=== PATIENT | male | born 1945 | race Caucasian/White ===

== ENCOUNTER 2024-11-08 14:50 | Outpatient (AMB) | payer MEDICARE, SELFPAY ==
--- NOTE | 2024-11-08 14:57 | MHC.PC.OV ---
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 Intake Note: patient here for new patient visit Human Resources Consultant Required: No Allergies loratadine (From Claritin) Allergy (Intermediate, Verified 11/08/24 15:02) Anaphylaxis Medication List - Last Reconciled 11/08/24 by Demarcus Urbina MD blood sugar diagnostic (FreeStyle Lite Strips) As directed carvedilol 6.25 mg PO BID insulin glargine (Lantus Solostar U-100 Insulin) 32 units subcut BEDTIME levothyroxine 75 mcg PO DAILY pen needle, diabetic As directed rosuvastatin (Crestor) 40 mg PO DAILY Tobacco use date assessed: 11/08/24 Fall risk assessment: No Falls in past year Last assessed Fall Risk: 11/08/24 Dental Screening Dental Screen Date: 11/08/24 Did you have a dental visit in the last 12 months?: No Did you have a dental problem in the last 6 months where you did not have access to dental care?: No Was dental information given to patient?: Yes 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 BS 183 this AM & A1c 7.7%. Had Lantus increased to 35U QAM in Dec 2023. PMHx: CAD Cardiology in [place], Diabetes, hypertension, hyperlipidemia, hypothyroid, CABG x 3 SurgHx: CABG, GB, Cataract. SocHx: Quit cigs 40 yrs ago. EtOH None. No drugs PFSH Medical History (Updated 11/08/24 @ 16:20 by Demarcus Urbina MD) Bilateral cataracts Diabetes Surgical History (Updated 11/08/24 @ 16:20 by Demarcus Urbina MD) History of cholecystectomy Social History (Updated 11/08/24 @ 15:09 by Ana Cristina Beasley MA) Housing: House Patient Tobacco Use Status: Never used Tobacco e-Cigarette/Vaping Use: Never Used Second Hand Smoke Exposure: No service: No Current occupational status: retired Cognitive needs: No Hearing needs: No Vision needs: Yes Questionnaire PHQ-9 Over the last 2 weeks, how often have you been bothered by any of the following problems? 1. Little interest or pleasure in doing things: not at all 2. Feeling down, depressed, or hopeless: not at all 3. Trouble falling or staying asleep, or sleeping too much: not at all 4. Feeling tired or having little energy: not at all 5. Poor appetite or overeating: not at all 6. Feeling bad about yourself - or that you are a failure or have let yourself or your family down: not at all 7. Trouble concentrating on things, such as reading the newspaper or watching television: not at all 8. Moving or speaking so slowly that other people could have noticed. Or the opposite - being so fidgety or restless that you have been moving around a lot more than usual: not at all 9. Thoughts that you would be better off or of hurting yourself in some way: not at all Total score: 0 Depression Screening Interpretation: Negative Depression Screening Done: Yes 25860 - PHQ-9 Billing: Yes Source: Developed by Drs. rOtiz Gutiérrez, Eloina Johnson, Ken Uribe and colleagues, with an educational jc from [employer]. Thrive Questionnaire Date Thrive assessed: 11/08/24 I am a: Patient What is your living situation today?: I have a steady place to live Within the past 12 months, did the food you bought not last and you didn't have the money to get more?: Never true Within the past 12 months, did you worry whether your food would run out before you got money to buy more?: Never true Do you have trouble paying for medicines?: No Do you have trouble getting transportation to medical appointments?: No Do you have trouble paying your heating and electricity bill?: No Do you have trouble taking care of your child, family member or friend?: No Do you have trouble with day-to-day activities such as bathing, preparing meals, shopping, managing finances, etc.?: No Are you currently unemployed and looking for a job?: No Are you interested in more education?: No Please select the resources that you would like help with: None Currently or been in a relationship where the following occur: No concerns reported THRIVE Score: 0 AUDIT C Alcohol Use Questionnaire (AUDIT-C) 1. How often do you have a drink containing alcohol?: Never 3. How often do you have six or more drinks on one occasion?: Never Total Score: 0 Score Reviewed/Action Taken: Yes HUMBERTO-7 AMB Questionnaire HUMBERTO-7 Date HUMBERTO - 7 assessed: 11/08/24 Feeling nervous, anxious, or on edge: 0 = Not at all Not being able to stop or control worryin = Not at all Worrying too much about different things: 0 = Not at all Trouble relaxin = Not at all Being so restless that it is hard to sit still: 0 = Not at all Becoming easily annoyed or irritable: 0 = Not at all Feeling afraid as if something awful might happen: 0 = Not at all Total HUMBERTO-7 score (0-4 normal; 5-9 mild; 10-14 moderate; 15-21 severe): 0 Source: Developed by Drs. Ortiz Gutiérrez, Eloina Johnson, Ken Uribe and colleagues, with an educational jc from [employer]. HUMBERTO-7 Assessment Billing HUMBERTO-7 Assessment Tool: HUMBERTO-7 Assessment 26596 Review of Systems Const Denies chills, Denies fatigue, Denies fever(s), Denies headache(s) and Denies weakness ENT Denies dizziness and Denies headache(s) Card Denies chest pain, Denies lightheadedness, Denies dyspnea and Denies other (Palpitations) Resp Denies cough, Denies dyspnea, Denies wheezing and Denies other ( shortness of breath) Musc Denies numbness and Denies tingling Neuro Denies dizziness, Denies headache(s), Denies numbness, Denies tingling, Denies paresthesias and Denies weakness Psych Denies anxiety and Denies depression Endo Denies fatigue Aller/Immun Denies wheezing Physical exam (Primary Care) Vital Signs: Last Vital Signs Temp 97.5 F 11/08/24 15:13 Pulse 70 11/08/24 15:13 Resp 16 11/08/24 15:13 BP 118/72 11/08/24 15:13 Pulse Ox 95 11/08/24 15:13 Oxygen Delivery Method Room Air 11/08/24 15:13 BMI result Body Mass Index 31.3 Tobacco/Smoking Status: Tobacco use Status Tobacco use date assessed 11/08/24 11/08/24 15:11 Patient Tobacco Use Status Never used Tobacco 11/08/24 15:11 e-Cigarette/Vaping Use Never Used 11/08/24 15:11 PHQ-9: PHQ-9 Score PHQ-9: Total score 0 11/08/24 15:11 Depression Screening Interpretation: Negative Thrive Assessment: Date of Thrive Assessment Date Thrive assessed 11/08/24 11/08/24 15:18 Currently or been in a relationship where the following occur: No concerns reported Const General: no acute distress and well developed Nutritional Appearance: well nourished Orientation/consciousness: patient oriented x3 HENMT Head: Yes normocephalic and Yes atraumatic Eyes General: appearance normal, both eyes and all related structures Pupils: Equal, round and reactive pupils present EOM: EOMs intact bilaterally Resp Effort & Inspection: normal respiratory effort Auscultation: clear to auscultation bilaterally Cardio Rate: regular rate Rhythm: regular rhythm Heart sounds: S1 normal heart sound present, S2 normal heart sound present, no gallops, no murmurs and no rubs Neuro General: patient oriented x3 and gait normal Cranial nerves: Yes Equal, round and reactive pupils present Psych Affect: normal affect Coding Level of Care Code New Pt Level 4 (37397) Diagnoses Coronary artery disease I25.10 S/P CABG x 3 Z95.1 Type 2 diabetes mellitus with hyperosmolarity, uncontrolled E11.00 Hypothyroidism E03.9 Hypertension I10 Additional Codes HUMBERTO-7 Assessment Billing - HMUBERTO-7 Assessment Tool: HUMBERTO-7 Assessment 68389 ([id number]) PHQ-9 - 00939 - PHQ-9 Billing: Yes ([id number]) Assessment & Plan Assessment & Plan (1) Coronary artery disease: Code(s): I25.10 - Atherosclerotic heart disease of [place] coronary artery without angina pectoris Category: Medical Plan: 79-year-old male with history of coronary artery disease and CABG x3 Blood pressure is well controlled. He is on rosuvastatin Needs better blood sugar control see below Followed by cardiology in [place]-will request notes (2) S/P CABG x 3: Code(s): Z95.1 - Presence of aortocoronary bypass graft Category: Surgical Plan: Stable (3) Type 2 diabetes mellitus with hyperosmolarity, uncontrolled: Code(s): E11.00 - Type 2 diabetes mellitus with hyperosmolarity without nonketotic hyperglycemic-hyperosmolar coma ([facility]) Category: Medical Plan: A1c 7.7% and blood sugar 183 this morning. Increase Lantus from 35 units daily to 40 units daily Continue to check blood sugars Encouraged regular meals - avoid sugars and starches (4) Hypothyroidism: Code(s): E03.9 - Hypothyroidism, unspecified Category: Medical Plan: Check labs Continue levothyroxine (5) Hypertension: Code(s): I10 - Essential (primary) hypertension Category: Medical Plan: Blood pressure is well controlled. Goal is less than 130/80 Continue current medication Orders: Orders Comprehensive [place]. Panel Fast Today Z00.00 - Encounter for general adult medical examination without abnormal findings Complete Blood Count Auto Diff Today Z00.00 - Encounter for general adult medical examination without abnormal findings Prostate Specific Antigen Scr Today Z12.5 - Encounter for screening for malignant neoplasm of prostate Free T4 (Free Thyroxine) Today E03.9 - Hypothyroidism, unspecified Thyroid Stimulating Hormone Today E03.9 - Hypothyroidism, unspecified Microalbumin, Random (w Creat) Today I10 - Essential (primary) hypertension Lipid Panel Today Z00.00 - Encounter for general adult medical examination without abnormal findings UA CC w/rflx Micro + Cult Today Z00.00 - Encounter for general adult medical examination without abnormal findings Triiodothyronine T3 Total Today E03.9 - Hypothyroidism, unspecified Medications: New levothyroxine 75 mcg PO DAILY 90 tabs 3RF 90 days carvedilol 6.25 mg PO BID 180 tabs 3RF 90 days insulin glargine (Lantus Solostar U-100 Insulin) 40 units (0.4 mL) subcut BEDTIME 36 mL 3RF 90 days E11.00 - Type 2 diabetes mellitus with hyperosmolarity without nonketotic hyperglycemic-hyperosmolar coma ([facility]) rosuvastatin (Crestor) 40 mg PO DAILY 90 tabs 3RF 90 days
[2024-11-08 15:13] VITALS: BP 118/72; PULSE 70; RESP 16; TEMP 36.4; O2SAT 95; BMI 31.3
--- OUTSIDE RECORDS SUMMARY | 2024-11-08 16:14 | XMS_ITS ---
Author Name [facility] Organization Unknown Care Team Organization Name Specialty Phone Email Start Date End Da te [facility] Bhakti Engel MD Primary Care 01/20/2022 11/01/2023
== END 2024-11-08 16:19 | disposition home or self-care (01) ==
LOC: HO.HMCFM 14:50
PROVIDERS: Visit Provider Family Medicine
DX: I25.10 Atherosclerotic heart disease of native coronary artery without angina pectoris (principal); Z95.1 Presence of aortocoronary bypass graft; E11.00 Type 2 diabetes mellitus with hyperosmolarity without nonketotic hyperglycemic-hyperosmolar coma (NKHHC); E03.9 Hypothyroidism, unspecified; I10 Essential (primary) hypertension

== ENCOUNTER → 2024-11-08 14:50 | Outpatient (BNVA) | payer MEDICARE, SELFPAY | PROVIDERS: Visit Provider Family Medicine | DX: I25.10 Atherosclerotic heart disease of native coronary artery without angina pectoris (principal); E11.00 Type 2 diabetes mellitus with hyperosmolarity without nonketotic hyperglycemic-hyperosmolar coma (NKHHC); E03.9 Hypothyroidism, unspecified; I10 Essential (primary) hypertension; Z95.1 Presence of aortocoronary bypass graft | CPT/HCPCS: 96127; 99202 ==

== ENCOUNTER 2024-11-15 08:13 | Outpatient (REF) | payer MEDICARE, SELFPAY ==
[2024-11-15 11:25] LABS: MANUAL DIFF FLAG NO
[2024-11-15 11:38] LABS: Appearance Urine Turbid; Glucose Urine UA Negative (Negative); PH 8.5 (5.0-9.0); Specific Gravity - Urine 1.020 (1.005-1.025); UMIC TRIGGER UACC YES
[2024-11-15 11:39] LABS: Hematocrit 49.2 % (42.0-52.0); Hemoglobin 16.2 g/dl (14.0-18.0); Imm Gran Abs Auto 0.02 X10*3/uL (0.00-0.03); Imm Gran Pct Auto 0.3 % (0.0-0.4); Lymphocytes Absolute Auto 1.2 X10*3/uL (1.2-4.9); Mean Corpuscular HGB Conc 32.9 g/dl (31.0-36.0); Mean Corpuscular Hemoglobin 30.4 pg (27.0-33.0); Mean Corpuscular Volume 92.3 fL (80.0-98.0); NRBC Abs Auto 0.000 X10*3/uL (0.0-0.012); NRBC Pct Auto 0.0 /100WBC (0.0-0.2); Platelet Count 168 X10*3/uL (160-400); Red Blood Count 5.33 X10*6/uL (4.60-5.80); White Blood Count 6.3 X10*3/uL (4.8-10.8)
[2024-11-15 11:58] LABS: Other Crystals Urine Present; UACC Culture Trigger YES
[2024-11-15 12:10] LABS: Alanine Aminotransferase 26 U/L (0-40); Albumin Level 4.2 g/dL (3.5-5.0); Alkaline Phosphatase 67 U/L (39-117); Anion Gap 12 (12-20); Aspartate Amino Transferase 29 U/L (5-37); Blood Urea Nitrogen 18 mg/dL (9-16); Calcium 9.2 mg/dL (8.4-10.2); Carbon Dioxide 27 mmol/L (22-29); Chloride 105 mmol/L (96-108); Cholesterol 117 mg/dL (<200); Estimated Glomerular Filt Rate > 60; HDL Cholesterol 47 mg/dL (>40); Potassium 3.9 mmol/L (3.3-5.1); Sodium 140 mmol/L (135-145); Total Protein 6.9 g/dL (6.5-8.0); Triglycerides 62 mg/dL (<150)
[2024-11-15 12:27] LABS: Microalbum/Creatinine Ratio Ur 105.4 ug/mg cr (<30)
[2024-11-15 12:28] LABS: Free T4 (Free Thyroxine) 1.03 ng/dL (0.71-1.85); Thyroid Stimulating Hormone 2.06 uIU/mL (0.32-4.0)
== END 2024-11-15 08:14 | disposition home or self-care (01) ==
LOC: HO.WFDLDS 08:13
PROVIDERS: Visit Provider Family Medicine
DX: Z00.00 Encounter for general adult medical examination without abnormal findings (principal); Z12.5 Encounter for screening for malignant neoplasm of prostate; E03.9 Hypothyroidism, unspecified; I10 Essential (primary) hypertension; Z11.2 Encounter for screening for other bacterial diseases
CPT/HCPCS: 36415; 80053; 80061; 81001; 82043; 82570; 84153; 84439; 84443; 84480; 85025; 87086

== ENCOUNTER → 2024-11-22 15:56 | Outpatient (BNV) | payer MEDICARE, SELFPAY | PROVIDERS: Visit Provider Family Medicine | DX: E11.00 Type 2 diabetes mellitus with hyperosmolarity without nonketotic hyperglycemic-hyperosmolar coma (NKHHC) (principal) | CPT/HCPCS: 83036 ==

== ENCOUNTER 2024-12-05 07:51 | Outpatient (REF) | payer MEDICARE, SELFPAY ==
[2024-12-05 11:38] LABS: Appearance Urine Turbid; Glucose Urine UA 100 mg/dL (Negative); PH 8.0 (5.0-9.0); Specific Gravity - Urine 1.020 (1.005-1.025); UMIC TRIGGER UACC YES
[2024-12-05 11:59] LABS: UACC Culture Trigger YES
== END 2024-12-05 07:52 | disposition home or self-care (01) ==
LOC: HO.WFDLDS 07:51
PROVIDERS: Visit Provider Family Medicine
DX: Z00.00 Encounter for general adult medical examination without abnormal findings (principal)
CPT/HCPCS: 81001; 87086; 87088; 87186

== ENCOUNTER 2025-01-10 14:19 | Outpatient (AMB) | payer MEDICARE, SELFPAY ==
--- NOTE | 2025-01-10 14:23 | A.OFFPC_ITS ---
Vital Signs 01/10/25 14:27 Height 6 ft 2 in Weight 247 lb BMI 31.7 BP 122/86 Blood Pressure Location Rt brachial Position Sitting Respiration 16 Pulse 70 Pulse Source Pulse Oximeter Temp 97.9 F Temp Source Temporal Artery Scan Pulse Oximetry (%) 94 Oxygen Delivery Method Room Air Intake Visit Reasons: F/u extended exam w follow-up diabetes & labs Intake Note: Ortiz presents in the office today for an extended exam with follow up to diabetes and labs. Patient needs refill of Crestor. Patient stated that the Macrobid gave him a yeast infection. Allergies loratadine (From Claritin) Allergy (Intermediate, Verified 01/10/25 14:25) Anaphylaxis Medication List - Last Reconciled 01/10/25 by Demarcus Urbina MD blood sugar diagnostic (FreeStyle Lite Strips) As directed carvedilol 6.25 mg PO BID 90 days insulin glargine (Lantus Solostar U-100 Insulin) 40 units (0.4 mL) subcut BEDTIME 90 days levothyroxine 75 mcg PO DAILY 90 days pen needle, diabetic As directed rosuvastatin (Crestor) 40 mg PO DAILY 90 days Tobacco use date assessed: 01/10/25 Fall risk assessment: No Falls in past year Last assessed Fall Risk: 01/10/25 Dental Screening Dental Screen Date: 01/10/25 Did you have a dental visit in the last 12 months?: No Did you have a dental problem in the last 6 months where you did not have access to dental care?: No Was dental information given to patient?: Patient declined HPI F/u extended exam w follow-up diabetes & labs HPI Details 79 y/o male presents for an extended ex am with f/u labs, health maint. Labs drawn 11/15/24. Reviewed labs with pt. A1c 7.7% 11/22/24. Had increased Lantus from 35 units to 40 units. Pt notes blood sugars at home have been in the 80s. Triglycerides 62. TC 117. LDL 58. HDL 47. He is on rosuvastatin 40mg. BP today 122/86, 70p. He is on carvedilol 6.25mg b.i.d. Has complaints of some dry skin. Does drink half a gallon of water a day. Pt notes he has never had a colonoscopy. Has not had a cologuard test. Poor dentition. Pt notes he does not go to dentist. HPI Comments History of Present Illness Details Documentation assistance for Demarcus Urbina MD, was provided by Evangelist Stark,? Language And Literature Division Chair on 01/10/2025 at 3:14 PM ARNULFO. I, Dr. Urbina, have read, observed, and verified documentation. [facility] Medical History (Updated 01/10/25 @ 15:22 by Evangelist Stark) Bilateral cataracts Diabetes Surgical History (Updated 11/08/24 @ 16:20 by Demarcus Urbina MD) History of cholecystectomy Social History (Updated 01/10/25 @ 14:27 by Shraddha Rodríguez [facility]) Housing: House Alcohol intake: never Patient Tobacco Use Status: Never used Tobacco e-Cigarette/Vaping Use: Never Used Second Hand Smoke Exposure: No service: No Current occupational status: retired Cognitive needs: No Hearing needs: No Vision needs: Yes Questionnaire Thrive Questionnaire Date Thrive assessed: 11/08/24 HUMBERTO-7 AMB Questionnaire HUMBERTO-7 Date HUMBERTO - 7 assessed: 11/08/24 Source: Developed by Drs. Ortiz Gutiérrez, Eloina Johnson, Ken Uribe and colleagues, with an educational jc from [employer]. Review of Systems Const Denies chills, Denies fatigue, Denies fever(s), Denies headache(s) and Denies weakness Eyes Denies change in vision ENT Denies dizziness, Denies headache(s), Denies hearing loss, Denies nasal congestion, Denies sinus pain, Denies sinus pressure and Denies sore throat Card Denies chest pain, Denies lightheadedness, Denies dyspnea and Denies other (palpitations) Resp Denies cough, Denies dyspnea and Denies wheezing GI Denies abdominal pain, Denies melena, Denies hematochezia, Denies change in bowel habits, Denies dyspepsia and Denies nausea Denies hematuria and Denies dysuria Musc Denies abnormal gait, Denies myalgias, Denies arthralgias, Denies numbness and Denies tingling Skin/Breast Denies rash, Denies unusual bruising and Denies wounds Neuro Denies abnormal gait, Denies dizziness, Denies headache(s), Denies memory loss, Denies numbness, Denies Sensory deficit (Neuro), Denies tingling and Denies weakness Psych Denies anxiety, Denies depression and Denies memory loss Endo Denies cold intolerance, Denies fatigue, Denies heat intolerance, Denies polydipsia and Denies polyuria Ayaan/Lymph Denies easy bleeding and Denies easy bruising Aller/Immun Denies wheezing Physical exam (Primary Care) Vital Signs: Last Vital Signs Temp 97.9 F 01/10/25 14:27 Pulse 70 01/10/25 14:27 Resp 16 01/10/25 14:27 BP 122/86 01/10/25 14:27 Pulse Ox 94 01/10/25 14:27 Oxygen Delivery Method Room Air 01/10/25 14:27 BMI result Body Mass Index 31.7 Tobacco/Smoking Status: Tobacco use Status Tobacco use date assessed 01/10/25 01/10/25 14:30 Patient Tobacco Use Status Never used Tobacco 01/10/25 14:27 e-Cigarette/Vaping Use Never Used 01/10/25 14:27 Thrive Assessment: Date of Thrive Assessment Date Thrive assessed 11/08/24 01/10/25 14:25 Const General: no acute distress, well developed, alert and awake Nutritional Appearance: well nourished Orientation/consciousness: patient oriented x3 HENMT Head: Yes normocephalic and Yes atraumatic Ears: hearing grossly normal bilaterally and TM's normal bilaterally General nose exam: Normal external nose present and Normal nares present Mouth: Normal oral and palatal mucosa present and moist mucous membranes Teeth and gingiva: dentition normal Throat: Yes posterior oropharynx normal Eyes General: appearance normal, both eyes and all related structures Pupils: Equal, round and reactive pupils present and Pupil accommodation reflex normal EOM: EOMs intact bilaterally Neck Neck: Yes normal visual inspection, Yes no lymphadenopathy and Yes trachea midline Thyroid: Thyroid normal Carotids: no bruits Lymphatic: no lymphadenopathy noted Chest Chest palpation & inspection: normal inspection of the chest Resp Effort & Inspection: normal respiratory effort Auscultation: clear to auscultation bilaterally Cardio Rate: regular rate Rhythm: regular rhythm Heart sounds: S1 normal heart sound present, S2 normal heart sound present, no gallops, no murmurs and no rubs Bruits: no abdominal aortic bruits and no carotid bruits GI Palpation (GI): No Abdominal aortic bruit present, Soft to palpation, nontender, No hepatosplenomegaly present and No Rebound tenderness present Auscultation: normal bowel sounds General: Yes no CVA tenderness Back/Spine/Pelvis Back: no CVA tenderness Cervical Spine: cervical ROM normal and No Cervical spine tenderness Thoracic/Lumbar Spine: thoraco-lumbar ROM normal, No pain with thoraco-lumbar ROM, No thoracic spinal tenderness and No lumbar spinal tenderness Skin Lesions: no lesions Rashes: no rashes Trauma: no lacerations or abrasions Wounds: no wounds Nails: normal Neuro General: patient oriented x3 Cranial nerves: Yes Equal, round and reactive pupils present Cognition (Neuro): normal cognition Gait exam (Neuro): Normal gait present Motor exam (neuro): 5/5 motor strength present throughout Sensory Exam: No Sensory deficit (Neuro) Deep tendon reflexes (DTR's): Right patellar reflex intensity grade: 2+ and Left patellar reflex intensity grade: 2+ Extrem General: Yes normal to inspection and No edema Psych Appearance: grossly normal Affect: normal affect Attitude: cooperative Thought process: Normal thought process present Coding Level of Care Code Est Pt Level 4 (69145) Diagnoses Hypertension I10 Coronary artery disease I25.10 Hypothyroidism E03.9 Poor dentition K08.9 Diabetes E11.9 Bacteria in urine R82.71 Screening for colon cancer Z12.11 Screening for prostate cancer Z12.5 Adult general medical exam Z00.00 Assessment & Plan Assessment & Plan (1) Hypertension: Code(s): I10 - Essential (primary) hypertension Category: Medical Plan: Blood pressure is fairly well controlled. Goal is less than 130/80. Continue current medication (2) Coronary artery disease: Code(s): I25.10 - Atherosclerotic heart disease of [place] coronary artery without angina pectoris Category: Medical Plan: Stable Followed by Cardiology. Continue carvedilol and Crestor Maintain good blood pressure lipids and blood sugar. (3) Hypothyroidism: Code(s): E03.9 - Hypothyroidism, unspecified Category: Medical Plan: Thyroid hormone levels within normal range (4) Poor dentition: Code(s): K08.9 - Disorder of teeth and supporting structures, unspecified Category: Medical Plan: Recommended he see a dentist but he declines (5) Diabetes: Code(s): E11.9 - Type 2 diabetes mellitus without complications Category: Medical Plan: A1c was high at last visit and I increased his Lantus from 35 units daily to 40 units daily. He says his morning blood sugars are now ranging between 86 and 140 No further changes to his medications Continue diabetic diet Will follow-up on A1c at his next visit (6) Bacteria in urine: Code(s): R82.71 - Bacteriuria Category: Medical Plan: Okay patient is s/p antibiotic He thinks that he still has a UTI though he denies symptoms except that he has frequent urination when increases his water intake. Doubt that represents a UTI. Will recheck urine studies (7) Screening for colon cancer: Code(s): Z12.11 - Encounter for screening for malignant neoplasm of colon Category: Medical Plan: Cologuard order (8) Screening for prostate cancer: Code(s): Z12.5 - Encounter for screening for malignant neoplasm of prostate Category: Medical Plan: PSA is within normal range Will continue annual screening (9) Adult general medical exam: Code(s): Z00.00 - Encounter for general adult medical examination without abnormal findings Category: Medical Plan: 79-year-old male presents for an extended exam Encouraged healthy diet with active lifestyle and plenty of exercise Orders: Orders UA CC w/rflx Micro + Cult Today R82.71 - Bacteriuria, Z00.00 - Encounter for general adult medical examination without abnormal findings Urine Culture Today R82.71 - Bacteriuria Referrals Cologuard Test Z12.11 - Encounter for screening for malignant neoplasm of colon, Z12.12 - Encounter for screening for malignant neoplasm of rectum
[2025-01-10 14:27] VITALS: BP 122/86; PULSE 70; RESP 16; TEMP 36.6; O2SAT 94; BMI 31.7
== END 2025-01-10 15:32 | disposition home or self-care (01) ==
LOC: HO.HMCFM 14:20
PROVIDERS: Visit Provider Family Medicine
DX: I10 Essential (primary) hypertension (principal); E11.9 Type 2 diabetes mellitus without complications; R82.71 Bacteriuria; I25.10 Atherosclerotic heart disease of native coronary artery without angina pectoris; E03.9 Hypothyroidism, unspecified; K08.9 Disorder of teeth and supporting structures, unspecified; Z12.11 Encounter for screening for malignant neoplasm of colon; Z12.5 Encounter for screening for malignant neoplasm of prostate

== ENCOUNTER → 2025-01-10 14:19 | Outpatient (BNVA) | payer MEDICARE, SELFPAY | PROVIDERS: Visit Provider Family Medicine | DX: Z00.00 Encounter for general adult medical examination without abnormal findings (principal); I10 Essential (primary) hypertension; E11.9 Type 2 diabetes mellitus without complications; I25.10 Atherosclerotic heart disease of native coronary artery without angina pectoris; E03.9 Hypothyroidism, unspecified; K08.9 Disorder of teeth and supporting structures, unspecified; R82.71 Bacteriuria | CPT/HCPCS: 99212 ==

== ENCOUNTER 2025-01-11 07:36 | Outpatient (REF) | payer MEDICARE, SELFPAY ==
[2025-01-11 11:56] LABS: Appearance Urine Cloudy; Glucose Urine UA 100 mg/dL (Negative); PH 6.5 (5.0-9.0); Specific Gravity - Urine 1.020 (1.005-1.025); UMIC TRIGGER UACC YES
[2025-01-11 12:08] LABS: UACC Culture Trigger YES
== END 2025-01-11 07:37 | disposition home or self-care (01) ==
LOC: HO.WFDLDS 07:36
PROVIDERS: Visit Provider Family Medicine
DX: Z00.00 Encounter for general adult medical examination without abnormal findings (principal); R82.71 Bacteriuria
CPT/HCPCS: 81001; 87086